=== PATIENT | male | born 1950 | race Hispanic/Latino ===

== ENCOUNTER 2018-04-28 06:38 | Day surgery (SDC) | payer OTHER ==
[2018-04-19 15:34] VITALS: BP 136/70
[2018-04-19 15:44] LABS: BASOPHILS % (AUTO) 0.3 % (0.0-5.0); EOSINOPHILS % (AUTO) 3.8 % (0.0-8.0); HEMATOCRIT 39.3 % (42-54); LYMPHOCYTES % (AUTO) 29.7 % (21.0-51.0); MEAN CORPUSCULAR HEMOGLOBIN 29.1 pg (27.0-33.0); MEAN CORPUSCULAR HGB CONC 34.2 g/dL (32.0-36.0); MEAN CORPUSCULAR VOLUME 85.1 fL (79-99); MONOCYTES % (AUTO) 9.6 % (3.0-13.0); NEUTROPHILS % (AUTO) 56.6 % (40.0-77.0); PLATELET COUNT (AUTO) 267 K/uL (130-400); RED BLOOD CELL COUNT(AUTO) 4.62 MIL/uL (4.50-6.20); RED CELL DISTRIBUTION WIDTH 13.8 % (11.0-15.5); WHITE BLOOD COUNT (AUTO) 7.9 K/uL (4.8-10.8)
--- NOTE | 2018-04-19 15:44 | NUR ---
BLOOD DR. العراقي NOTIFIED THAT PATIENT DOESN'T CONSENT FOR BLOOD TRANSFUSION DUE TO HIS AMISH BELIEFS. HE STATED HE WAS A JEHOVA WITNESS. MESSAGE LEFT WITH EDEN.
[2018-04-19 15:54] LABS: CREATININE 1.1 mg/dL (0.5-1.5); POTASSIUM 4.3 mmol/L (3.5-5.1)
[~2018-04-28] VITALS: Ht 170.2 cm; Wt 83.7 kg
[2018-04-28] VITALS (13 sets, daily range): BP systolic 116–152; BP diastolic 59–88
[~2018-04-28 06:38] MED LIST: CEFTRIAXONE SODIUM 1 GM IVP SCH; FINA5TAB41 PO; LISI-613 PO; TAMS0.4C32 PO
[2018-04-28] MEDS ORDERED: LACTATED RINGERS 1000ML 1,000 ML IV ONE (07:26)
[2018-04-28] MEDS ORDERED: CEFTRIAXONE SODIUM 1 GM ONE (07:26)
[2018-04-28] MEDS ORDERED: ONDANSETRON HCL 4 MG/2 ML VIAL ONE (09:40)
[2018-04-28] MEDS ORDERED: LIDOCAINE PF 2% 5ML ABBOJECT ONE (09:40)
[2018-04-28] MEDS ORDERED: MIDAZOLAM HCL 1 MG/ML 2ML VIAL ONE (09:40)
[2018-04-28] MEDS ORDERED: DEXAMETHASONE SOD PHOSPHATE 10MG/ML 1ML VIAL ONE (09:40)
[2018-04-28] MEDS ORDERED: NEOSTIGMINE 5MG/5ML SYR IV ONE (09:41)
[2018-04-28] MEDS ORDERED: PROPOFOL 10 MG/ML 20ML VIAL IV ONE ×2 (09:41→10:34)
[2018-04-28] MEDS ORDERED: FENTANYL CITRATE PF 50 MCG/1 ML 2ML VIAL ONE (09:41)
[2018-04-28] MEDS ORDERED: GLYCOPYRROLATE 1 MG/5 ML SYRINGE ONE ×2 (09:41)
[2018-04-28] MEDS ORDERED: ROCURONIUM 10MG/1ML SYR 10 MG/ML ML ONE (09:41)
[2018-04-28] MEDS ORDERED: EPHEDRINE SULFATE 50 MG/ML AMPULE ONE (10:00)
[2018-04-28] MEDS ORDERED: SODIUM CHLORIDE 0.9% 10 ML VIAL ONE (10:38)
[2018-04-28] MEDS ORDERED: PHENYLEPHRINE HCL 10 MG/ML 1ML VIAL IV ONE (10:38)
[2018-04-28] MEDS ORDERED: OPIUM/BELLADONNA ALKALOIDS 1 EACH SUPP.RECT RC ONE (11:48)
[2018-04-28] MEDS ORDERED: PHENAZOPYRIDINE HCL 200 MG TABLET ONE (12:39)
--- NOTE | 2018-04-28 13:27 | NUR ---
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 THEY BOTH VERBALIZED UNDERSTANDING.
--- NOTE | 2018-04-28 13:29 | NUR ---
PATIENT ASSISTED UP TO CHAIR TO CHANGE.
== END 2018-04-28 13:30 | disposition home or self-care (01) ==
LOC: DAH 06:38
PROVIDERS: ATTEND Urology
DX: N40.1 Benign prostatic hyperplasia with lower urinary tract symptoms (principal); R35.1 Nocturia; N32.89 Other specified disorders of bladder; Z80.42 Family history of malignant neoplasm of prostate
CPT/HCPCS: 36415; 52648; 80048; 85025; 93005; A4218; A4340; A4354; A4358; A4510; A4600; C1769; J0696; J1100; J2001; J2250; J2370; J2405; J2704 ×2; J2710; J3010; J3490 ×3; J7030; J7120 ×2

== ENCOUNTER 2018-05-01 14:16 | Emergency (ER) | payer OTHER ==
[~2018-05-01 14:16] MED LIST changes: -CEFTRIAXONE SODIUM 1 GM IVP SCH
[2018-05-01 15:04] LABS: BASOPHILS % (AUTO) 0.3 % (0.0-5.0); LYMPHOCYTES % (AUTO) 12.9 % (21.0-51.0); MEAN CORPUSCULAR HEMOGLOBIN 28.3 pg (27.0-33.0); MEAN CORPUSCULAR HGB CONC 33.7 g/dL (32.0-36.0); MONOCYTES % (AUTO) 10.1 % (3.0-13.0); NEUTROPHILS % (AUTO) 75.7 % (40.0-77.0); PLATELET COUNT (AUTO) 220 K/uL (130-400); RED BLOOD CELL COUNT(AUTO) 4.65 MIL/uL (4.50-6.20); RED CELL DISTRIBUTION WIDTH 13.4 % (11.0-15.5)
[2018-05-01 15:20] LABS: CREATININE 1.3 mg/dL (0.5-1.5); INR 0.99 (0.85-1.15); PARTIAL THROMBOPLASTIN TIME 24.1 SEC (26.3-35.5); POTASSIUM 3.8 mmol/L (3.5-5.1); PROTHROMBIN TIME 10.4 SEC (9.6-11.6)
[2018-05-01 15:27] LABS: ALBUMIN 3.4 g/dL (3.5-5.0); BILIRUBIN,TOTAL 0.5 mg/dL (0.2-1.0); TOTAL PROTEIN, SERUM 7.3 g/dL (6.0-8.3)
[2018-05-01 15:39] LABS: B-TYPE NATRIURETIC PEPTIDE < 5 pg/mL (0-100)
[2018-05-01] MEDS ORDERED: SODIUM CHLORIDE 0.9% 1000ML 1,000 ML IV ONE (15:49)
[2018-05-01 16:07] LABS: APPEARANCE,URINE SL CLOUDY (CLEAR); BILIRUBIN,URINE NEGATIVE (NEGATIVE); COLOR,URINE ORANGE (YELLOW); GLUCOSE, URINE (UA) 100 mg/dL (NEGATIVE); KETONES,URINE NEGATIVE (NEGATIVE); LEUKOCYTE ESTERASE ,URINE TRACE (NEGATIVE); NITRATE,URINE POSITIVE (NEGATIVE); OCCULT BLOOD,URINE LARGE (NEGATIVE); PH,URINE 5.5 (5.0-8.0); PROTEIN,URINE 100 (NEGATIVE)
[2018-05-01 16:19] LABS: BACTERIA,URINE Moderate /HPF (None Seen); RBC,URINE 26-50 /HPF (0-1); SQUAMOUS EPITHELIAL CELL,UR Rare /HPF (0-2)
== END 2018-05-01 17:04 | disposition home or self-care (01) ==
LOC: EDH 14:16
DX: J11.1 Influenza due to unidentified influenza virus with other respiratory manifestations (principal); R55 Syncope and collapse; R33.9 Retention of urine, unspecified; I10 Essential (primary) hypertension
CPT/HCPCS: 36415; 51702; 70450; 80053; 81001; 82550; 83605; 83880; 84484; 85025; 85610; 85730; 87040; 87088; 87804 ×2; 93005; 96360; 99284; J7030

== ENCOUNTER 2024-05-01 08:52 | Emergency (ER) | payer OTHER ==
[~2024-05-01] VITALS: Ht 170.2 cm; Wt 82.6 kg
[~2024-05-01 08:52] MED LIST changes: -LISI-613 PO; +LISI20TA24 PO
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
[2024-05-01 10:29] VITALS: BP 162/71; PULSE 75; RESP 16; TEMP 97.2; O2SAT 98
== END 2024-05-01 10:30 | disposition home or self-care (01) ==
LOC: EDH 08:52
DX: H43.392 Other vitreous opacities, left eye (principal); Z79.899 Other long term (current) drug therapy
CPT/HCPCS: 70450; 99284

== ENCOUNTER 2024-10-27 05:58 | Emergency (ER) | payer OTHER ==
[~2024-10-27] VITALS: Ht 170.2 cm; Wt 79.4 kg
[2024-10-27] MEDS ORDERED: dexaMETHasone SOD PHOSPHATE 4 MG/ML 1ML VIAL IM ONE (06:30)
[2024-10-27] MEDS: dexaMETHasone SOD PHOSPHATE 4 MG/ML 1ML VIAL ONE (06:31)
[2024-10-27] MEDS: dexaMETHasone SOD PHOSPHATE 4 MG/ML 1ML VIAL IM ONE (06:39)
[2024-10-27 07:05] VITALS: BP 142/75; PULSE 75; RESP 16; TEMP 98.1; O2SAT 98
--- NOTE | 2024-10-27 07:09 | HMCIMG ---
EXAM: CR right Hand, 3 View. CLINICAL HISTORY: pain COMPARISON: None provided. FINDINGS: BONES: No acute fracture or aggressive appearing osseous lesion. JOINTS: Mild to moderate degenerative changes in the interphalangeal joints, most pronounced in the interphalangeal joint of the thumb and the proximal interphalangeal joint of the middle finger. SOFT TISSUES: The soft tissues appear within normal limits. No radiopaque foreign body is seen. IMPRESSION: No fracture or dislocation in the right hand. Mild to moderate degenerative changes in the interphalangeal joints, most pronounced in the interphalangeal joint of the thumb and the proximal interphalangeal joint of the middle finger. /[place]
[2024-10-27] MEDS ORDERED: HYDR28.32 TP (08:05)
--- NOTE | 2024-10-27 08:06 | ERN ---
General Chief Complaint: Other Problems Stated Complaint: JOINT PAIN Time Seen by MD: 07:19 Source: patient History of Present Illness Initial Comments Patient is a 74-year-old male coming in to be evaluated for right hand pain. Patient states that he has a history of arthritis was given a Decadron injection felt better. He also states that he was prescribed prednisone and states it did not work as effectively as a Decadron and is here for further evaluation. Patient has been evaluated by landscape contractor in his pending a visit tomorrow. Allergies: Coded Allergies: No Known Drug Allergies (Unverified Allergy, Unknown, 04/19/18) Home Meds Reported Medications Lisinopril (Lisinopril) 20 Mg Tablet, 20 MG PO HS, TAB 04/19/18 Finasteride (Finasteride) 5 Mg Tablet, 5 MG PO HS, TAB 04/19/18 Tamsulosin HCl (Tamsulosin HCl) 0.4 Mg Cap.er.24h, 0.4 MG PO DAILY, CAPSULE. 04/19/18 Past Medical History Past Medical History: Hypertension Medical History Other: PROSTATE ISSUE Past Surgical History: None Surgical History Other: PROSTATE SX ROS Dictation CONSTITUTIONAL: No chills, no fever, no weakness, no diaphoresis, no malaise. HEAD/FACE: No signs of trauma. EENT: No eye pain, no blurred vision, no tearing, no double vision, no ear pain, no ear discharge, no nose pain, no nasal congestion, no throat pain, no throat swelling, no mouth pain. RESPIRATORY: No cough, no orthopnea, no SOB, no stridor, no wheezing. CARDIOVASCULAR: No chest pain, no edema, no palpitations, no syncope. GASTROINTESTINAL/ABDOMINAL: No abdominal pain, no constipation, no diarrhea, no nausea, no vomiting. GENITOURINARY: No abnormal discharge, no dysuria, no frequent urination, no hematuria. No complaints of pain in the genitals. MUSCULOSKELETAL: No back pain, no gout, joint pain, joint swelling, muscle pain, no muscle stiffness, no neck pain. INTEGUMENTARY: No change in color, no change in hair/nails, no dryness, no lesion, no lumps, no rash. NEUROLOGICAL/PSYCH: No anxiety, not depressed, no emotional problem, no headache, no numbness, no pre-existing deficit, no history of seizures, no tremors, no weakness. HEMATOLOGIC/LYMPHATIC: Not anemic, no history of blood clots, no apparent bleeding, no bruising, glands not swollen. All Systems Negative, Except as Noted. Physical Exam Physical Exam Dictation VITAL SIGNS: Reviewed. GENERAL APPEARANCE: Alert, oriented x3, no acute distress, obese. HEAD AND FACE: Non-traumatic. EYES: PERRL, pink conjunctivas, eyelid no trauma, anterior chamber clear. EARS: Pinnas intact and no signs of trauma or erythema. Ear canals clear and no discharge. TMs no erythema. NOSE: No discharge, no bleeding. OROPHARYNX: Mouth normal, teeth no caries, tongue pink. Pharynx clear, no erythema. Tonsils no exudates, no abscesses noted. Mucous membrane moist. NECK: Supple, non-tender, no thyromegaly, no masses, no JVD, no bruits. BREAST: Deferred. CHEST: No tenderness, no crepitus, no paradoxical movement, no retractions. LUNGS: Clear, well-ventilated, symmetric, no rales, no wheezing, no rhonchi, no stridor, good breath sounds bilaterally. HEART: Regular rate, regular rhythm, no murmur, no gallops. VASCULAR: No peripheral edema. ABDOMEN: Soft, positive bowel sounds, nondistended, no guarding, nontender, no rebound, no masses no hepatomegaly, no splenomegaly, no Alfaro's sign, no hernias. RECTAL: Deferred. GENITAL: Deferred. NEUROLOGICAL: Normal speech, gross motor function intact, gross sensory function intact. MUSCULOSKELETAL: Neck nontender, full range of motion, back nontender, full range of motion. EXTREMITIES: Nontender, full range of motion. SKIN: Color pink, dry, no turgor, no rash, no lacerations, no abrasions, no contusions. LYMPHATICS: Deferred. Results Laboratory and Microbiology Labs Reviewed?: Yes EKG/XRAY/US/CT/MRI X-RAY Comment IMAGING REPORT Signed PATIENT: MARQUISE DAVIDSON MR#: [id number] : 1950 SEX: M AGE: 74 LOCATION: ED ORDER [id number] STATUS: REG REPORT#: [id number] SERVICE 4 REASON: pain ORDERING PHYSICIAN: MARQUISE GREEN MD PROCEDURE: HAND 3V RT - HAND 3+VWS RT EXAM: CR right Hand, 3 View. CLINICAL HISTORY: pain COMPARISON: None provided. FINDINGS: BONES: No acute fracture or aggressive appearing osseous lesion. JOINTS: Mild to moderate degenerative changes in the interphalangeal joints, most pronounced in the interphalangeal joint of the thumb and the proximal interphalangeal joint of the middle finger. SOFT TISSUES: The soft tissues appear within normal limits. No radiopaque foreign body is seen. IMPRESSION: No fracture or dislocation in the right hand. Mild to moderate degenerative changes in the interphalangeal joints, most pronounced in the interphalangeal joint of the thumb and the proximal interphalangeal joint of the middle finger. /[place] DICTATED BY: OLLIE MERINO MD DATE: 10/27/24807 ELECTRONICALLY SIGNED BY: OLLIE MERINO MD DATE: 10/27/24807 [facility] MDM: Differential diagnosis: Arthritis, rheumatoid arthritis, osteoarthritis, psoriasis, Rationale: Tests considered and ordered secondary to shared decision making include: Previous outside records reviewed: Old ER visits. Risk of complication and/or morbidity or mortality of patient management: None Medications-Per medication reconciliation Need for hospitalization: Patient does not meet criteria for hospitalization. Patient is a 74-year-old male coming in to be evaluated for right hand pain. Patient states that the right hand pain has been ongoing for several months. He was evaluated in the past prescribed dexamethasone he states that help with the pain shortly after that he was prescribed prednisone and states it is that did not help. X-ray did not disclose acute findings several chronic changes osteoarthritis was present. Patient states he feels better with the Decadron received here he will be discharged with topical steroids. I also advised him appropriate follow up with the landscape contractor. ED Course Orders Procedure Category Date Status Time Dexamethasone 4mg/Ml PHA 10/27/24 Complete 1ml Vial (Dexametha 06:30 Dexamethasone 4mg/Ml PHA 25 Complete 1ml Vial (Dexametha 06:28 Dexamethasone 4mg/Ml PHA 10/27/24 Complete 1ml Vial (Dexametha 07:00 Hand 3+Vws Rt RAD 10/27/24 Resulted 06:25 Current Medications Medications (Trade) Dose Ordered Sig/Julio Route PRN Reason Start Time Stop Time Status Last Admin Dose Admin Dexamethasone Sodium Phosphate (dexaMETHasone 4MG/ML 1ML VIAL) 4 mg STK-MED ONCE .ROUTE 10/27/24 06:28 10/27/24 06:28 DC Dexamethasone Sodium Phosphate (dexaMETHasone 4MG/ML 1ML VIAL) 6 mg ONCE ONCE IM 10/27/24 07:00 10/27/24 07:01 DC 10/27/24 06:39 Dexamethasone Sodium Phosphate (dexaMETHasone 4MG/ML 1ML VIAL) 8 mg ONCE ONCE IM 10/27/24 06:30 10/27/24 06:33 DC Vital Signs Date Time Temp Pulse Resp B/P (MAP) Pulse Ox O2 Delivery O2 Flow Rate FiO2 10/27/24 07:05 98.1 75 16 142/75 98 Room Air* 0 21 10/27/24 06:40 98.2 80 18 146/78 97 Room Air* 0 21 10/27/24 06:00 98.1 91 17 146/76 98 Room Air 0 DX & DISP Disposition: Discharge Departure Impression: Primary Impression: Osteoarthritis of hand, right Additional Impression: Arthritis of hand, right Condition: Stable Scripts Hydrocortisone (Hydrocortisone 1% 28.35GM) 1 % Crm 1 APPL TP BID for 7 Days, #30 GM 0 Refills apply to affected area(s) Prov: ELLA CLAY MD 10/27/24 Additional Instructions: FOLLOW-UP WITH PRIMARY CARE PROVIDER IN 1 TO 2 DAYS. TAKE MEDICATIONS DIRECTED HERE IN THE EMERGENCY ROOM. OKAY TO CONTINUE HOME MEDICATIONS UNLESS OTHERWISE DISCUSSED DURING YOUR VISIT IN THE EMERGENCY ROOM TODAY. RETURN TO YOUR NEAREST EMERGENCY ROOM IF SYMPTOMS WORSEN OR IF THERE IS NO IMPROVEMENT. CALL 911 IF YOU NEED IMMEDIATE ASSISTANCE. TAKE TYLENOL [id number] NEEDED AND IF NO CONTRAINDICATIONS ARE PRESENT. INCREASE ORAL HYDRATION. A WOU ND CULTURE OR URINE CULTURE WAS ORDERED HERE IN THE EMERGENCY ROOM DEPARTMENT PLEASE FOLLOW-UP WITH PRIMARY CARE PROVIDER AND ADVISE THEM TO GET REPORTS FROM OUR FACILITY. IF YOU HAD ANY CARISA WRAP/SPLINTS THAT WERE APPLIED HERE, PLEASE DO NOT REMOVE THEM UNTIL YOU SEE YOUR PRIMARY CARE OR SPECIALTY. Referrals: Referrals: MICHAEL BIRMINGHAM MD (PCP) Time of Disposition: 08:05 ELLA CLAY MD Oct 27, 2024 08:06
--- NOTE | 2024-10-27 08:26 | NUR ---
Patient was discharged. Educated patient on the importance of following up with PCP in 2-3 days. Prescription was given to patient.
== END 2024-10-27 08:15 | disposition home or self-care (01) ==
LOC: EDH 05:58
DX: M19.041 Primary osteoarthritis, right hand (principal); I10 Essential (primary) hypertension; Z79.899 Other long term (current) drug therapy
CPT/HCPCS: 99284; 73130; 96372; J1100